=== PATIENT | male | born 1970 | race Caucasian/White ===

== ENCOUNTER → 2018-11-04 | Outpatient (CLI) | payer BC, OTHER ==
[~2018-11-04] VITALS: Ht 175.3 cm; Wt 112.9 kg
[~2018-11-04] MED LIST: ADDERALL 30 MG30 MG PO; CLONAZEPAM 1 MG1 M1 PO; CYMBALTA60 MG PO; MOBIC15 MG PO; NORCO 7.5-3251 EACH PO; TESTOSTERONE PELLETS; TRAZODONE HCL100 MG PO; VOLTAREN GEL 1100 G1 TOP
[2018-11-04 13:15] VITALS: BP 165/105
== END | disposition home or self-care (01) ==
LOC: PAIN 11:55
DX: M25.521 Pain in right elbow (principal); G89.29 Other chronic pain; F32.9 Major depressive disorder, single episode, unspecified; G47.33 Obstructive sleep apnea (adult) (pediatric); Z79.899 Other long term (current) drug therapy